=== PATIENT | male | born 1940 | race Caucasian/White ===

== ENCOUNTER → 2019-03-17 | Outpatient (CLI) | payer OTHER | LOC: HYPER 03-12 16:01 | DX: E11.621 Type 2 diabetes mellitus with foot ulcer (principal); L97.512 Non-pressure chronic ulcer of other part of right foot with fat layer exposed; L84 Corns and callosities; E11.40 Type 2 diabetes mellitus with diabetic neuropathy, unspecified; E78.5 Hyperlipidemia, unspecified; E03.9 Hypothyroidism, unspecified; G89.29 Other chronic pain; I10 Essential (primary) hypertension; N40.1 Benign prostatic hyperplasia with lower urinary tract symptoms; M48.00 Spinal stenosis, site unspecified; M20.41 Other hammer toe(s) (acquired), right foot; Z79.4 Long term (current) use of insulin ==

== ENCOUNTER → 2019-03-31 | Outpatient (CLI) | payer OTHER | LOC: HYPER 06:53 | DX: E11.621 Type 2 diabetes mellitus with foot ulcer (principal); L97.512 Non-pressure chronic ulcer of other part of right foot with fat layer exposed; E11.40 Type 2 diabetes mellitus with diabetic neuropathy, unspecified; I10 Essential (primary) hypertension; M48.00 Spinal stenosis, site unspecified; E78.5 Hyperlipidemia, unspecified; M20.41 Other hammer toe(s) (acquired), right foot; E03.9 Hypothyroidism, unspecified; N40.1 Benign prostatic hyperplasia with lower urinary tract symptoms; G89.29 Other chronic pain; Z68.28 Body mass index [BMI] 28.0-28.9, adult; Z79.4 Long term (current) use of insulin ==